=== PATIENT | female | born 1995 | race Two or more races ===

== ENCOUNTER 2023-10-22 18:35 | Emergency (ER) | payer OTHER ==
[~2023-10-22] VITALS: Ht 160 cm; Wt 57.6 kg
[2023-10-22] MEDS ORDERED: LANTUS SOL100 UNIT/1 (18:45)
[2023-10-22] MEDS ORDERED: GABAPENTIN100 M2 PO (21:08)
== END 2023-10-22 22:04 | disposition home or self-care (01) ==
LOC: ER 18:35
DX: R20.2 Paresthesia of skin (principal); Z88.8 Allergy status to other drugs, medicaments and biological substances